=== PATIENT | female | born 1980 | race African-American/Black ===

== ENCOUNTER 2021-05-16 20:53 | Emergency (ER) | payer BC, MEDICAID ==
[~2021-05-16] VITALS: Ht 180.3 cm; Wt 142.0 kg
[2021-05-16] MEDS ORDERED: ACETAMINOPHEN 325MG TABLET PO ONE (22:15)
[2021-05-16] MEDS ORDERED: DICYCLOMINE 10 MG/5 ML ORAL SYR PO STA (22:32)
[2021-05-16] MEDS ORDERED: MAGNESIUM/ALUMINUM HYDROXIDE/SIMETHICONE 30ML UDC PO STA (22:32)
[2021-05-16] MEDS ORDERED: ONDANSETRON 4MG ODT PO ONE (22:45)
[2021-05-16 22:46] LABS: CHLORIDE 106 mEq/L (98-107)
[2021-05-16 22:48] LABS: HCG SCREEN NEGATIVE
[2021-05-16 22:53] LABS: BASOPHILS % 0.8 % (0.0-2.0); HEMATOCRIT. 40.8 % (36.0-48.0); HEMOGLOBIN. 13.4 g/dL (12.0-16.0); LYMPHOCYTES % 24.9 % (20.0-50.0); MEAN CORPUSCULAR HEMOGLOBIN 26.6 pg (28.0-32.0); MEAN CORPUSCULAR VOLUME 81.2 fL (81.0-99.0); MONOCYTES % 14.3 % (2.0-8.0); PLATELET 261 x1000/uL (130-400); RED BLOOD CELL COUNT 5.03 mill/uL (4.2-5.4); RED CELL DISTRIBUTION WIDTH 14.3 % (11.6-14.6)
[2021-05-17] MEDS ORDERED: FAMO-135 MT (00:26)
[2021-05-17 01:27] LABS: CLARITY URINE CLOUDY (CLEAR); COLOR URINE YELLOW (YELLOW); KETONES URINE 1+ (NEGATIVE); LEUKOCYTE ESTERASE URINE 2+ (NEGATIVE); NITRITE URINE NEGATIVE (NEGATIVE); OCCULT BLOOD URINE 1+ (NEGATIVE); PROTEIN URINE NEGATIVE (NEGATIVE); SPECIFIC GRAVITY URINE 1.023 (1.005-1.030)
[2021-05-17] MEDS ORDERED: NITR-87 MT (03:43)
[2021-05-17 03:45] VITALS: BP 145/85
== END 2021-05-17 04:12 | disposition home or self-care (01) ==
LOC: ER 20:53
DX: N30.00 Acute cystitis without hematuria (principal); R51.9 Headache, unspecified; I10 Essential (primary) hypertension
CPT/HCPCS: 36415; 80053; 81003; 83690; 84703; 85025; 87086; 93005; 99284; Q0162